=== PATIENT | male | born 1965 | race Caucasian/White ===

== ENCOUNTER 2019-03-22 13:51 | Observation (INO) | payer OTHER ==
[2019-03-22 14:32] LABS: Absolute Lymphocytes (CBC) 1.6 K/uL (0.7-4.9); Basophils % 0.8 % (0-1.3); Hematocrit 45.6 % (39.6-49.0); RBC Red Blood Cell Count 5.53 M/uL (4.33-5.43)
[2019-03-22 14:33] LABS: Protime INR 1.08
[2019-03-22 14:52] LABS: ALT/SGPT 36 U/L (12-78); AST/SGOT 16 U/L (15-37); Albumin 3.7 g/dL (3.4-5.0); Alkaline Phosphatase 75 U/L (45-117); BUN Blood Urea Nitrogen 11 mg/dL (7-18); Bicarbonate 27 mmol/L (21-32); Bilirubin Direct 0.1 mg/dL (0-0.2); Bilirubin Total 0.6 mg/dL (0.2-1.0); Glucose Level 175 mg/dL (74-106); Lipase 110 U/L (73-393); Magnesium 2.1 mg/dL (1.8-2.4); NT PRO-BNP 21 pg/mL (<125); Protein, Total 7.4 g/dL (6.4-8.2); Sodium Level 137 mmol/L (136-145); Troponin (Emerg Dept Use Only) < 0.02 ng/mL (0.0-0.045)
[2019-03-22] MEDS ORDERED: MAGNE/ALUM HYDROXD 30 ML UCUP ONE (15:03)
[2019-03-22] MEDS ORDERED: FAMOTIDINE 20 MG/2 ML VIAL IV ONE (15:03)
[2019-03-22] MEDS ORDERED: LIDOCAINE VISCOUS 2% SOLN 15 ML UDC ONE (15:03)
--- NOTE | 2019-03-22 15:04 | RAD REPORT ---
EXAM DESCRIPTION: RAD - Chest Single View - 03/22/2019 2:56 pm CLINICAL HISTORY: Chest pain COMPARISON: None. TECHNIQUE: AP portable chest image was obtained 1442 hours . FINDINGS: Lung volumes are low. No peripheral mass or consolidation. No failure or volume overload s uspected. Heart and vasculature are normal. No measurable pleural effusion and no pneumothorax. No ac [place] bony abnormality seen. No acute aortic findings suspected. IMPRESSION: No acute cardiopulmonary process.
--- NOTE | 2019-03-22 15:05 | EDPHYS ---
Physician Documentation [facility] Name: En Bryant Age: 53 yrs Sex: Male : 1965 Arrival Date: 03/22/2019 Time: 13:52 Bed 7 Private MD: Unknown, Unknown ED Physician José Parker HPI: 03/22 15:01 This 53 yrs old Male presents to ER via Ambulatory with complaints of Chest parrish Pain. 15:01 The patient or guardian reports chest pain that is located primarily in the substernal parrish area. Onset: 3 day(s) ago. The pain does not radiate. Associated signs and symptoms: The patient has no apparent associated signs or symptoms. The chest pain is described as a pressure. Severity of pain: At its worst the pain was mild moderate in the emergency department the pain is unchanged. The patient has experienced similar episodes in the past, several times. Historical: - Allergies: 14:04 No Known Allergies; rv - Home Meds: 14:08 metformin 500 mg Oral tab 1 tab 2 times per day [Active]; atorvastatin 80 mg oral tab 1 rv tab once daily [Active]; isosorbide mononitrate 60 mg Oral Tb24 1 tab once daily [Active]; clopidogrel 75 mg oral tab 1 tab once daily [Active]; Xarelto 20 mg oral tab 1 tab once daily [Active]; - PMHx: 14:04 Hypertension; Diabetes - NIDDM; Hernia; Diverticulitis; rv - PSHx: 14:04 Angioplasty; rv - Immunization history:: Adult Immunizations. - Social history:: Smoking status: . - Ebola Screening: : Patient denies travel to an Ebola-affected area in the 21 days before illness onset. - Family history:: not pertinent. ROS: 15:01 Constitutional: Negative for fever, chills, and weight loss, Eyes: Negative for injury, parrish pain, redness, and discharge, ENT: Negative for injury, pain, and discharge, Neck: Negative for injury, pain, and swelling, Respiratory: Negative for shortness of breath, cough, wheezing, and pleuritic chest pain, Abdomen/GI: Negative for abdominal pain, nausea, vomiting, diarrhea, and constipation, Back: Negative for injury and pain, : Negative for injury, bleeding, discharge, and swelling, MS/Extremity: Negative for injury and deformity, Skin: Negative for injury, rash, and discoloration, Neuro: Negative for headache, weakness, numbness, tingling, and seizure, Psych: Negative for depression, anxiety, suicide ideation, homicidal ideation, and hallucinations, Allergy/Immunology: Negative for hives, rash, and allergies, Endocrine: Negative for neck swelling, polydipsia, polyuria, polyphagia, and marked weight changes, Hematologic/Lymphatic: Negative for swollen nodes, abnormal bleeding, and unusual bruising. 15:01 Cardiovascular: Positive for chest pain, of the chest and abdomen. Exam: 15:01 Constitutional: This is a well developed, well nourished patient who is awake, alert, parrish and in no acute distress. Head/Face: Normocephalic, atraumatic. Eyes: Pupils equal round and reactive to light, extra-ocular motions intact. Lids and lashes normal. Conjunctiva and sclera are non-icteric and not injected. Cornea within normal limits. Periorbital areas with no swelling, redness, or edema. ENT: Nares patent. No nasal discharge, no septal abnormalities noted. Tympanic membranes are normal and external auditory canals are clear. Oropharynx with no redness, swelling, or masses, exudates, or evidence of obstruction, uvula midline. Mucous membranes moist. Neck: Trachea midline, no thyromegaly or masses palpated, and no cervical lymphadenopathy. Supple, full range of motion without nuchal rigidity, or vertebral point tenderness. No Meningismus. Chest/axilla: Normal chest wall appearance and motion. Nontender with no deformity. No lesions are appreciated. Cardiovascular: Regular rate and rhythm with a normal S1 and S2. No gallops, murmurs, or rubs. Normal PMI, no JVD. No pulse deficits. Respiratory: Lungs have equal breath sounds bilaterally, clear to auscultation and percussion. No rales, rhonchi or wheezes noted. No increased work of breathing, no retractions or nasal flaring. Abdomen/GI: Soft, non-tender, with normal bowel sounds. No distension or tympany. No guarding or rebound. No evidence of tenderness throughout. Back: No spinal tenderness. No costovertebral tenderness. Full range of motion. Male : Normal genitalia with no discharge or lesions. Skin: Warm, dry with normal turgor. Normal color with no rashes, no lesions, and no evidence of cellulitis. MS/ Extremity: Pulses equal, no cyanosis. Neurovascular intact. Full, normal range of motion. Neuro: Awake and alert, GCS 15, oriented to person, place, time, and situation. Cranial nerves II-XII grossly intact. Motor strength 5/5 in all extremities. Sensory grossly intact. Cerebellar exam normal. Normal gait. Psych: Awake, alert, with orientation to person, place and time. Behavior, mood, and affect are within normal limits. Vital Signs: 14:06 BP 114 / 65; Pulse 88; Resp 17; Temp 98.4; Pulse Ox 100% ; Weight 95.25 kg; Height 6 rv ft. (182.88 cm); 15:15 BP 144 / 101 (art line/); Pulse 76; Resp 17; Pulse Ox 100% on R/A; tw2 16:31 BP 154 / 102; Pulse 77; Resp 17; Pulse Ox 100% on R/A; tw2 17:25 BP 139 / 93; Pulse 80; Resp 17; Pulse Ox 98% on R/A; tw2 18:13 BP 139 / 96; Pulse 80; Resp 17; Pulse Ox 98% on R/A; tw2 14:06 Body Mass Index 28.48 (95.25 kg, 182.88 cm) rv MDM: 14:13 Patient medically screened. [facility] 15:03 Data reviewed: vital signs, nurses notes, lab test result(s), EKG, radiologic studies, [facility] CT scan, plain films. 03/22 14:15 Order name: Basic Metabolic Panel; Complete Time: 14:[address] [facility] 03/22 14:15 Order name: CBC with Diff; Complete Time: 14:[address] [facility] 03/22 14:15 Order name: LFT's; Complete Time: 14:[address] [facility] 03/22 14:15 Order name: Magnesium; Complete Time: 14:[address] [facility] 03/22 14:15 Order name: NT PRO-BNP; Complete Time: 14:[address] [facility] 03/22 14:15 Order name: PT-INR; Complete Time: 14:[address] [facility] 03/22 14:15 Order name: Troponin (emerg Dept Use Only); Complete Time: 14:[address] [facility] 03/22 14:15 Order name: XRAY Chest (1 view); Complete Time: 15:[address] [facility] 03/22 14:15 Order name: Lipase; Complete Time: 14:[address] [facility] 03/22 15:00 Order name: CT Chest For PE Angio; Complete Time: 16:[address] [facility] 03/22 16:39 Order name: Urine Dipstick--Ancillary (enter results) 03/22 16:43 Order name: Urine Dipstick-Ancillary [facility] 03/22 14:15 Order name: EKG; Complete Time: 14:[address] [facility] 03/22 14:15 Order name: Cardiac monitoring; Complete Time: 14:[address] [facility] 03/22 14:15 Order name: EKG - Nurse/Tech; Complete Time: 14:[address] [facility] 03/22 14:15 Order name: IV Saline Lock; Complete Time: 14:[address] [facility] 03/22 14:15 Order name: Labs collected and sent; Complete Time: 14:[address] [facility] 03/22 14:15 Order name: O2 Per Protocol; Complete Time: 14:[address] [facility] 03/22 14:15 Order name: O2 Sat Monitoring; Complete Time: 14:[address] [facility] 03/22 14:15 Order name: Urine Dipstick-Ancillary (obtain specimen); Complete Time: 16:[address] [facility] Administered Medications: 15:07 Drug: Pepcid 20 mg Route: IVP; Site: right antecubital; tw2 16:32 Follow up: Response: No adverse reaction tw2 15:07 Drug: GI Cocktail without - (Maalox Suspension 30 ml, Lidocaine Liquid 2 % 15 tw2 ml) Route: PO; 16:33 Follow up: Response: No adverse reaction tw2 Disposition: 03/22/19 15:04 Hospitalization ordered by Julio Louis for Observation. Preliminary diagnosis are Other chest pain, Type 2 diabetes mellitus, Obesity, unspecified. - Bed requested for Telemetry/MedSurg (observation). - Status is Observation. tw2 - Condition is Stable. - Problem is new. - Symptoms have improved. UTI on Admission? No Signatures: Dispatcher [employer] Kendy Marie RN RN José Soto MD MD cha Wise, Tara RN RN tw2 Boston Hearn RN RN rv Corrections: (The following items were deleted from the chart) 18:08 15:04 Hospitalization Ordered by Julio Louis DO for Observation. Preliminary spencer diagnosis is Other chest pain; Type 2 diabetes mellitus; Obesity, unspecified. Bed requested for Telemetry/MedSurg (observation). Status is Observation. Condition is Stable. Problem is new. Symptoms have improved. UTI on Admission? No. parrish 18:23 18:08 03/22/2019 15:04 Hospitalization Ordered by Julio Louis DO for Observation. tw2 Preliminary diagnosis is Other chest pain; Type 2 diabetes mellitus; Obesity, unspecified. Bed requested for Telemetry/MedSurg (observation). Status is Observation. Condition is Stable. Problem is new. Symptoms have improved. UTI on Admission? No. dw
--- NOTE | 2019-03-22 15:05 | ER ---
Nurse's Notes [facility] Name: En Bryant Age: 53 yrs Sex: Male : 1965 Arrival Date: 03/22/2019 Time: 13:52 Bed 7 Private MD: Unknown, Unknown Diagnosis: Other chest pain;Type 2 diabetes mellitus;Obesity, unspecified Presentation: 03/22 14:02 Presenting complaint: Patient states: i am having chest pain for three days now. it is rv like pressure. an hour ago it was worse, the pain is like 10/10. Transition of care: patient was not received from another setting of care. Onset of symptoms was March 22, 2019 at 13:00. Risk Assessment: Do you want to hurt yourself or someone else? Patient reports no desire to harm self or others. Initial Sepsis Screen: Does the patient meet any 2 criteria? No. Patient's initial sepsis screen is negative. Does the patient have a suspected source of infection? No. Patient's initial sepsis screen is negative. Care prior to arrival: None. 14:02 Method Of Arrival: Ambulatory rv 14:02 Acuity: MARIBEL 3 rv Historical: - Allergies: 14:04 No Known Allergies; rv - Home Meds: 14:08 metformin 500 mg Oral tab 1 tab 2 times per day [Active]; atorvastatin 80 mg oral tab 1 rv tab once daily [Active]; isosorbide mononitrate 60 mg Oral Tb24 1 tab once daily [Active]; clopidogrel 75 mg oral tab 1 tab once daily [Active]; Xarelto 20 mg oral tab 1 tab once daily [Active]; - PMHx: 14:04 Hypertension; Diabetes - NIDDM; Hernia; Diverticulitis; rv - PSHx: 14:04 Angioplasty; rv - Immunization history:: Adult Immunizations. - Social history:: Smoking status: . - Ebola Screening: : Patient denies travel to an Ebola-affected area in the 21 days before illness onset. - Family history:: not pertinent. Screenin:01 Abuse screen: Denies threats or abuse. Nutritional screening: No deficits noted. tw2 Tuberculosis screening: No symptoms or risk factors identified. Fall Risk None identified. Assessment: 14:00 General: Appears in no apparent distress. Behavior is calm, cooperative, appropriate tw2 for age. Pain: Pain does not radiate. Pain: Complains of pain in chest Pain began 2 hours ago. Neuro: Level of Consciousness is awake, alert, obeys commands, Oriented to person, place, time, situation. Cardiovascular: Heart tones S1 S2 Patient's skin is warm and dry. Respiratory: Airway is patent Respiratory effort is even, unlabored, Respiratory pattern is regular, symmetrical, Breath sounds are clear bilaterally. GI: Abdomen is round non-distended, obese, Bowel sounds present X 4 quads. : No signs and/or symptoms were reported regarding the genitourinary system. EENT: No signs and/or symptoms were reported regarding the EENT system. Derm: No signs and/or symptoms reported regarding the dermatologic system. Musculoskeletal: Range of motion: intact in all extremities. 15:15 Reassessment: Patient appears in no apparent distress at this time. No changes from tw2 previously documented assessment. Patient and/or family updated on plan of care and expected duration. Pain level reassessed. Patient is alert, oriented x 3, equal unlabored respirations, skin warm/dry/pink. 16:32 Reassessment: Patient appears in no apparent distress at this time. No changes from tw2 previously documented assessment. Patient and/or family updated on plan of care and expected duration. Pain level reassessed. Patient is alert, oriented x 3, equal unlabored respirations, skin warm/dry/pink. 17:25 Reassessment: Patient appears in no apparent distress at this time. No changes from tw2 previously documented assessment. Patient and/or family updated on plan of care and expected duration. Pain level reassessed. Patient is alert, oriented x 3, equal unlabored respirations, skin warm/dry/pink. 18:13 Reassessment: Patient appears in no apparent distress at this time. No changes from tw2 previously documented assessment. Patient and/or family updated on plan of care and expected duration. Pain level reassessed. Patient is alert, oriented x 3, equal unlabored respirations, skin warm/dry/pink. Vital Signs: 14:06 BP 114 / 65; Pulse 88; Resp 17; Temp 98.4; Pulse Ox 100% ; Weight 95.25 kg; Height 6 rv ft. (182.88 cm); 15:15 BP 144 / 101 (art line/); Pulse 76; Resp 17; Pulse Ox 100% on R/A; tw2 16:31 BP 154 / 102; Pulse 77; Resp 17; Pulse Ox 100% on R/A; tw2 17:25 BP 139 / 93; Pulse 80; Resp 17; Pulse Ox 98% on R/A; tw2 18:13 BP 139 / 96; Pulse 80; Resp 17; Pulse Ox 98% on R/A; tw2 14:06 Body Mass Index 28.48 (95.25 kg, 182.88 cm) rv ED Course: 13:52 Patient arrived in ED. ag5 13:54 Unknown, Unknown is Private Physician. ag5 14:00 Shereen Gonzalez, KEMI is Primary Nurse. tw2 14:01 Bed in low position. Call light in reach. manugrapher on. Pulse ox on. NIBP on. tw2 14:01 Arm band placed on. EKG completed in triage. Results shown to MD. tw2 14:01 Patient maintains SpO2 saturation greater than 95% on room air. tw2 14:03 Triage completed. rv 14:06 EKG done, by pollution control technician. reviewed by José Parker MD. at1 14:10 Inserted saline lock: 20 gauge in right antecubital area, using aseptic technique. tw2 Blood collected. 14:13 José Parker MD is Attending Physician. parrish 14:56 XRAY Chest (1 view) In Process Unspecified. EDMS 15:03 Julio Louis DO is Hospitalizing Provider. parrish 15:32 CT Chest For PE Angio In Process Unspecified. EDMS 16:30 Inserted saline lock: 20 gauge in left antecubital area, using aseptic technique. tw2 ,using aseptic technique. per CT. 18:14 No provider procedures requiring assistance completed. tw2 18:14 Patient admitted, IV remains in place. tw2 Administered Medications: 15:07 Drug: Pepcid 20 mg Route: IVP; Site: right antecubital; tw2 16:32 Follow up: Response: No adverse reaction tw2 15:07 Drug: GI Cocktail without - (Maalox Suspension 30 ml, Lidocaine Liquid 2 % 15 tw2 ml) Route: PO; 16:33 Follow up: Response: No adverse reaction tw2 Outcome: 15:04 Decision to Hospitalize by Provider. parrish 18:14 Condition: stable tw2 18:14 Instructed on the need for admit. 18:17 Admitted to Med/surg accompanied by tech, via wheelchair, room 426, with chart, Report tw2 called to KEMI Mancilla 18:23 Patient left the ED. tw2 Signatures: Dispatcher [employer] José Clay MD MD cha Gonzales, Amanda, vehicle delivery worker EKG Tat1 Shereen Gonzalez RN RN tw2 Boston Hearn RN RN Chela Solis 5
--- NOTE | 2019-03-22 15:39 | RAD REPORT ---
EXAM DESCRIPTION: CT - Chest For Pe Angio - 03/22/2019 3:31 pm CLINICAL HISTORY: Chest pain. CHEST PAIN COMPARISON: No comparisons TECHNIQUE: CT angiogram of the pulmonary arteries was performed with MIP. All CT scans are performed using dose optimization technique as appropriate and may include automated exposure control or mA/KV adjustment according to patient size. FINDINGS: No evidence of pulmonary thromboembolism. No acute aortic finding demonstrated. The lungs are clear. No significant pericardial or pleural fluid. No concerning bony finding. IMPRESSION: No evidence of pulmonary thromboembolism. No acute lung findings.
--- NOTE | 2019-03-22 15:50 | EKG ---
Test Date: 2019-03-22 Test Time: 14:00:31 Pneumatic Tube Repairer: JOHN MEASUREMENT RESULTS: Intervals: Rate: 83 VA: 182 QRSD: 98 QT: 360 QTc: 423 Moriarty: P: 21 VA: 182 QRS: -26 T: 15 INTERPRETIVE STATEMENTS: Normal sinus rhythm Normal ECG No previous ECG available for comparison Electronically Signed On 03-22-19 15:49:44 CDT by Tommie Laird
--- NOTE | 2019-03-22 15:59 | P.HP ---
Certification for Inpatient Patient admitted to: Observation With expected LOS: <2 Midnights Patient will require the following post-hospital care: None Practitioner: I am a practitioner with admitting privileges, knowledge of patient current condition, hospital course, and medical plan of care. Services: Services provided to patient in accordance with Admission requirements found in Title 42 Section 412.3 of the Code of Federal Regulations Patient History Date of Service: 03/22/19 Primary Care Provider: Maria Guadalupe; Cardiology-Dr. Nation([place]) Reason for admission: Chest pain History of Present Illness: 53-year-old male presented to the emergency room with chest pain. Patient with history of diabetes mellitus type 2 non insulin-dependent, CAD with cardiac stent, history of multiple PE on chronic anti coagulation therapy, GERD/hiatal hernia. Patient presented with chest pain to the substernal region. It has been occurring over the past several days with rest. It is associated with shortness of breath. Some headaches noted. He rated the pain about a 8/10. He came to the ER for further evaluation. Patient reports history of CAD with prior stents. He had repeat heart catheterization in 2017 for chest pain which was unremarkable. He gets most of his care in [place] and [place]. In the ER patient was evaluated. No significant EKG changes noted. Troponin unremarkable. CBC and BMP stable. Chest x-ray unremarkable, chest CT showed no pulmonary embolism. Blood pressure stable at this time. Patient was admitted for further evaluation. When I saw the patient in ER, he was without any chest pain. Patient stable at this time. Home medications list reviewed: Yes - Past Medical/Surgical History Diabetic: Yes -: Diabetes mellitus type 2, non insulin dependent -: CAD with prior stent -: Hyperlipidemia -: GERD with hiatal hernia -: Hx multiple pulmonary emboli, chronic anti coag. -: Cardiac Stent 2014 Psychosocial/ Personal History: Patient is . He currently works as a pipe line employee. Patient travels. - Family History Father -: Heart disease - Social History Smoking Status: Unknown if ever smoked Alcohol use: No CD- Drugs: No Caffeine use: Yes Place of Residence: Home Review of Systems General: As per HPI Eyes: Unremarkable ENT: Unremarkable Respiratory: Shortness of Breath, As per HPI Cardiovascular: Chest Pain, As per HPI Gastrointestinal: Unremarkable Genitourinary: Unremarkable Musculoskeletal: Unremarkable Integumentary: Unremarkable Neurological: Unremarkable Lymphatics: Unremarkable Physical Examination - Physical Exam General: Alert, In no apparent distress, Oriented x3, Cooperative HEENT: Atraumatic, Normocephalic, PERRLA, Mucous membr. moist/pink Neck: Supple, No Thyromegaly Respiratory: Clear to auscultation bilaterally, Normal air movement Cardiovascular: Normal pulses, Regular rate/rhythm Gastrointestinal: Normal bowel sounds, Soft and benign, Non-distended, No tenderness, No masses, No rebound, No guarding Musculoskeletal: No erythema, No tenderness, No warmth Integumentary: No tenderness/swelling, No erythema, No warmth, No cyanosis Neurological: Normal speech, Normal strength at 5/5 x4 extr, Normal tone, Normal affect Lymphatics: No axilla or inguinal lymphadenopathy - Studies Laboratory Data (last 24 hrs) 03/22/19 14:21: PT 12.7 H, INR 1.08 03/22/19 14:21: WBC 8.8, Hgb 15.5, Hct 45.6, Plt Count 262 03/22/19 14:21: Sodium 137, Potassium 4.0, BUN 11, Creatinine 1.09, Glucose 175 H, Magnesium 2.1, Total Bilirubin 0.6, AST 16, ALT 36, Alkaline Phosphatase 75, Lipase 110 Assessment and Plan - Plan Impression: Chest pain with history of cardiac stent Diabetes mellitus type 2 non insulin dependent Hyperlipidemia History of pulmonary emboli on chronic anti coagulation therapy GERD with hiatal hernia Plan: Chest pain with history of cardiac stent: Patient will be admitted for further evaluation. Will continue monitor cardiac enzymes and telemetry. Order echocardiogram. Will continue with Plavix, Lipitor. Cardiology consulted to further evaluate. Will keep the patient NPO after midnight as the patient may require further cardiac evaluation. Anticipate discharge within the next 24-48 hr pending cardiac evaluation. Diabetes mellitus type 2 non insulin dependent: Hold metformin at this time. Continue Accu-Cheks and sliding scale. Hyperlipidemia: Check fasting lipid panel. Continue Lipitor 80 mg daily. History of pulmonary emboli on chronic anti coagulation therapy: Continue Xarelto 20 mg daily GERD with hiatal hernia: Will start Protonix 40 mg daily. Discharge Plan: Home Plan to discharge in: 24 Hours - Advance Directives Does patient have a Living Will: No Does patient have a Durable POA for Healthcare: No - Code Status/Comfort Care Code Status Assessed: Yes (Patient is full code) Time Spent Managing Pts Care (In Minutes): 55
[2019-03-22 16:43] LABS: Urine Blood NEGATIVE (NEG); Urine Glucose NEGATIVE (NEG); Urine Protein NEGATIVE (NEG)
[2019-03-22] MEDS ORDERED: ONDANSETRON 4 MG/2 ML VIAL IV PRN (18:38)
[2019-03-22] MEDS ORDERED: RIVAROXABAN 20 MG TABLET PO SCH (18:38)
[2019-03-22] MEDS ORDERED: ACETAMINOPHEN 500 MG TAB PO PRN (18:38)
[2019-03-22] MEDS ORDERED: HYDRALAZINE HCL 20 MG/ML VIAL IV PRN (18:38)
[2019-03-22] MEDS: INSULIN -REGULAR HUMAN 50 UNIT/0.5 ML ML SQ SCH ×2 (18:38→21:42)
[2019-03-22] MEDS ORDERED: ATORVASTATIN 80 MG TAB PO SCH (21:00)
[2019-03-22 21:40] LABS: CKMB Creatine Kinase MB < 1.0 ng/mL (0.3-3.6); Creatine Phosphokinase 54 U/L (39-308); Troponin I < 0.02 ng/mL (0.0-0.045)
[2019-03-22 23:38] VITALS: BMI 36.6
[2019-03-23 05:07] LABS: Absolute Lymphocytes (CBC) 2.1 K/uL (0.7-4.9); Basophils % 0.9 % (0-1.3); Hematocrit 44.1 % (39.6-49.0); Lymphocytes % 25.3 % (15.3-44.8); MPV 8.9 fL (7.6-11.3); RBC Red Blood Cell Count 5.33 M/uL (4.33-5.43)
[2019-03-23 05:28] LABS: BUN Blood Urea Nitrogen 13 mg/dL (7-18); Bicarbonate 28 mmol/L (21-32); CKMB Creatine Kinase MB < 1.0 ng/mL (0.3-3.6); Creatine Phosphokinase 44 U/L (39-308); Glucose Level 188 mg/dL (74-106); HDL Cholesterol 24 mg/dL (40-60); LDL Cholesterol, Calculated 178 (<130); Magnesium 2.1 mg/dL (1.8-2.4); Potassium 3.8 mmol/L (3.5-5.1); Sodium Level 138 mmol/L (136-145); Troponin I < 0.02 ng/mL (0.0-0.045)
[2019-03-23] MEDS: INSULIN -REGULAR HUMAN 50 UNIT/0.5 ML ML SQ SCH ×2 (07:30→11:53)
[2019-03-23] MEDS ORDERED: PANTOPRAZOLE 40MG TABLET PO SCH (07:30)
[2019-03-23] MEDS ORDERED: INFLUENZA VACCINE (for 3y+) 0.5 ML DOSE IMVAC ONE (08:00)
[2019-03-23] MEDS ORDERED: PNEUMOCOCCAL VACCINE 0.5 ML IMVAC ONE (08:00)
[2019-03-23 08:01] VITALS: O2SAT 95
[2019-03-23] MEDS ORDERED: CLOPIDOGREL 75 MG TABLET PO SCH (09:00)
[2019-03-23] MEDS ORDERED: ISOSORBIDE MONO SR 60 MG TAB PO SCH (09:00)
[2019-03-23] MEDS ORDERED: FOLIC ACID 1 MG TABLET PO SCH (09:00)
[2019-03-23] MEDS ORDERED: POTASSIUM CL SA 10 MEQ TAB PO ONE (09:00)
[2019-03-23] MEDS ORDERED: DOCOSAHEXANOIC AC/EPA 1000 MG PO SCH (09:00)
[2019-03-23 09:18] VITALS: BP 149/94; TEMP 97.6
--- NOTE | 2019-03-23 10:55 | P.DS ---
Admission Date: 03/22/19 Discharge Date: 03/23/19 Primary Care Provider: Maria Guadalupe; Cardiology-Dr. Nation([place]) Disposition: ROUTINE DISCHARGE Discharge Condition: GOOD Reason for Admission: Chest pain Consultations: Cardiology-Dr. Cole Procedures: CT chest: FINDINGS: No evidence of pulmonary thromboembolism. No acute aortic finding demonstrated. The lungs are clear. No significant pericardial or pleural fluid. No concerning bony finding. IMPRESSION: No evidence of pulmonary thromboembolism. No acute lung findings. Medical Problem list: Chest pain with history of cardiac stent Hypertension Diabetes mellitus type 2, non-insulin dependent Hyperlipidemia GERD with hiatal hernia History of pulmonary emboli on chronic anti coagulation therapy Obesity, BMI 36 Brief History of Present Illness: 53-year-old male presented to the emergency room with chest pain. Patient with history of diabetes mellitus type 2 non insulin-dependent, CAD with cardiac stent, history of multiple PE on chronic anti coagulation therapy, GERD/hiatal hernia. Patient presented with chest pain to the substernal region. It has been occurring over the past several days with rest. It is associated with shortness of breath. Some headaches noted. He rated the pain about a 8/10. He came to the ER for further evaluation. Patient reports history of CAD with prior stents. He had repeat heart catheterization in 2017 for chest pain which was unremarkable. He gets most of his care in [place] and [place]. In the ER patient was evaluated. No significant EKG changes noted. Troponin unremarkable. CBC and BMP stable. Chest x-ray unremarkable, chest CT showed no pulmonary embolism. Blood pressure stable at this time. Patient was admitted for further evaluation. When I saw the patient in ER, he was without any chest pain. Patient stable at this time. Hospital Course: Patient presented with chest pain. Patient with history of cardiac stent. During the course of his stay patient did well. Chest pain resolved. Cardiac enzymes unremarkable. Patient was seen and evaluated by Cardiology. No cardiac inpatient evaluation required. Patient had elevated blood pressure and not on prior medication. Toprol XL was added. At discharge, cardiology recommended to continue Toprol-XL 25 mg daily. At discharge patient will need to follow up with cardiology or his test driller's in [place] within 1-2 weeks to follow up this hospitalization. Patient will require outpatient cardiac workup to further address. At discharge he will continue with Lipitor 80 mg daily, Plavix 75 mg daily and isosorbide mononitrate ER 60 mg daily. Patient has GERD with hiatal hernia. Chest pain may be related to this. At discharge patient will continue with Pepcid 20 mg 1 pill twice daily. Patient may benefit with GI evaluation as an outpatient after cardiac workup. Patient with diabetes mellitus type 2. Blood sugars remained stable. At discharge he will continue with Glucophage ER 500 mg 1 pill twice daily. Recommend to maintain blood sugars less than 140 fasting and less than 200 after meals. Further adjustment can be done by his PCP. Patient with history of pulmonary emboli. CT chest unremarkable. Patient on chronic anti coagulation therapy. At discharge he will continue with Xarelto 20 mg daily. Patient with hyperlipidemia. Lipid panel was abnormal. LDL 178, total cholesterol 237, total triglycerides 174 and HDL 24. Patient will continue with Lipitor 80 mg daily. Folic acid and fish oil 2000 mg twice daily has been added. Patient to follow up with his test driller to further address. Patient may be a candidate for subcutaneous injectable medication for hyperlipidemia. This can be further addressed by his test driller. Patient with obesity with BMI 36. Continue lifestyle modification education. Vital Signs/Physical Exam: Temp Pulse Resp BP Pulse Ox 97.6 F 73 20 149/94 H 95 03/23/19 08:00 03/23/19 08:00 03/23/19 08:00 03/23/19 08:00 03/23/19 08:00 General: Alert, In no apparent distress, Oriented x3, Cooperative HEENT: Atraumatic, Mucous membr. moist/pink Neck: Supple, No Thyromegaly Respiratory: Clear to auscultation bilaterally, Normal air movement Cardiovascular: Normal pulses, Regular rate/rhythm Gastrointestinal: Normal bowel sounds, Soft and benign, Non-distended, No tenderness, No masses, No rebound, No guarding Musculoskeletal: No erythema, No tenderness, No warmth Integumentary: No tenderness/swelling, No erythema, No warmth, No cyanosis Neurological: Normal speech, Normal strength at 5/5 x4 extr, Normal tone, Normal affect Laboratory Data at Discharge: WBC 8.3 K/uL (4.3-10.9) 03/23/19 04:50 Hgb 15.1 g/dL (13.6-17.9) 03/23/19 04:50 Hct 44.1 % (39.6-49.0) 03/23/19 04:50 Plt Count 231 K/uL (152-406) 03/23/19 04:50 PT 12.7 SECONDS (9.5-12.5) H 03/22/19 14:21 INR 1.08 03/22/19 14:21 Sodium 138 mmol/L (136-145) 03/23/19 04:50 Potassium 3.8 mmol/L (3.5-5.1) 03/23/19 04:50 BUN 13 mg/dL (7-18) 03/23/19 04:50 Creatinine 1.05 mg/dL (0.55-1.3) 03/23/19 04:50 Glucose 188 mg/dL (74-106) H 03/23/19 04:50 Magnesium 2.1 mg/dL (1.8-2.4) 03/23/19 04:50 Total Bilirubin 0.6 mg/dL (0.2-1.0) 03/22/19 14:21 AST 16 U/L (15-37) 03/22/19 14:21 ALT 36 U/L (12-78) 03/22/19 14:21 Alkaline Phosphatase 75 U/L (45-117) 03/22/19 14:21 Troponin I < 0.02 ng/mL (0.0-0.045) 03/23/19 04:50 Triglycerides 174 mg/dL (<150) H 03/23/19 04:50 Cholesterol 237 mg/dL (<200) H 03/23/19 04:50 HDL Cholesterol 24 mg/dL (40-60) L 03/23/19 04:50 Cholesterol/HDL Ratio 9.88 03/23/19 04:50 Lipase 110 U/L (73-393) 03/22/19 14:21 Home Medications: Atorvastatin Calcium [Lipitor] 1 tab PO DAILY 03/22/19 Clopidogrel Bisulfate [Plavix*] 1 tab PO DAILY 03/22/19 Isosorbide Mononitrate [Isosorbide Mononitrate ER] 1 tab PO DAILY 03/22/19 Metformin ER [Glucophage ER*] 1 tab PO BID 03/22/19 Rivaroxaban [Xarelto*] 20 mg PO DAILY 03/22/19 Docosahexanoic AC/Epa [Fish Oil 1,000 MG*] 2,000 mg PO BID #120 cap 03/23/19 Famotidine [Pepcid] 20 mg PO BID #60 tab 03/23/19 Metoprolol Succinate [Toprol Xl*] 25 mg PO [id number] #30 tab 03/23/19 New Medications: Docosahexanoic AC/Epa [Fish Oil 1,000 MG*] 2,000 mg PO BID #120 cap Famotidine [Pepcid] 20 mg PO BID #60 tab Metoprolol Succinate [Toprol Xl*] 25 mg PO [id number] #30 tab Patient Discharge Instructions: 1. Recommend to follow up with PCP in 1 week to follow up this hospitalization. 2. Patient presented with chest pain. Patient with history of cardiac stent. Cardiac enzymes unremarkable. Patient seen and evaluated by Cardiology. No cardiac inpatient evaluation required. Cardiology recommended to the added Toprol-XL 25 mg daily. At discharge patient should follow up with his test driller or follow up with cardiology within 1-2 weeks to follow up this hospitalization. Patient will require outpatient cardiac workup to further address. Patient may continue his other medications including Lipitor 80 mg daily, Plavix 75 mg daily, and isosorbide mononitrate ER 60 mg daily. 3. Patient has GERD with hiatal hernia. At discharge patient will continue with Pepcid 20 mg 1 pill twice daily. Patient may benefit with GI evaluation as an outpatient. 4. Patient with diabetes mellitus type 2. At discharge he will continue with Glucophage ER 500 mg 1 pill twice daily. Recommend to maintain blood sugars less than 140 fasting and less than 200 after meals. Further adjustment can be done by his PCP. 5. Patient with history of pulmonary emboli. Patient on chronic anti coagulation therapy. At discharge he will continue with Xarelto 20 mg daily. 6. Patient with hyperlipidemia. LDL elevated. Patient will continue with Lipitor 80 mg daily. Folic acid and fish oil 2000 mg twice daily has been added. Patient to follow up with his test driller to further address. Patient may be a candidate for subcutaneous injectable medication for hyperlipidemia. Diet: AHA Activity: Ad laureano Time spent managing pt's care (in minutes): 55
--- NOTE | 2019-03-24 01:27 | CON ---
Date of Consultation: 03/23/[address] Louis's service on 03/22/2019. I saw the patient on 03/23/2019. Reason For Consultation: Chest pain. History Of Present Illness: Mr. Bryant is a 53-year-old male has had a history of multiple pulmonar y emboli in the past for which he takes Xarelto, has had a history of stent in 2014 in [place]. Has a history of diabetes, hypertension, gastroesophageal reflux disease, and hiatal hernia. He came in with mid-epigastric chest pain that radiates up to the throat without any nausea, vomiting, diaphore sis, PND, orthopnea, pedal edema, palpitation, or syncope. Symptoms are not exertional. By the time I saw him, he has already had a normal chest x-ray, EKG, and labs except for the cholesterol of 237, glucose of 376. His troponin was negative. Past Medical History: As stated above. Allergies: NO MEDICATION. Review of Systems: Negative. Social History: Negative. Family History: Positive for heart disease. Medications At Home: Lipitor, Plavix, Xarelto, Imdur, and metformin. Physical Examination: General: He weighed 270 pounds. No acute distress. Vital Signs: Stable. Afebrile. HEENT: Negative. Neck: Supple without any bruit, lymphadenopathy, JVD, or thyromegaly. Chest: Clear to auscultation and percussion. Cardiac: Revealed a regular rhythm and rate. No murmurs, gallops, or rubs. Abdomen: Benign. Extremities: Revealed no clubbing, cyanosis, or edema. Skin: Dry and intact. Neurological: He was nonfocal. Pulses were present distally bilaterally. Diagnostic Data: As stated earlier. Impression And Plan: 1.Atypical chest pain, most likely gastroesophageal reflux disease or hiatal hernia related. 2.History of coronary artery disease, status post stent in 2014. 3.Hypertension. 4.Diabetes. 5.History of pulmonary embolus, on Xarelto. I think we need to continue his present regimen with Li pitor, Plavix, Xarelto, Imdur, and metformin. I think we need to add Toprol to his regimen because michelle hernández is slightly hypertensive and has been for a while. He should be on beta-amber because of his his tory. He sees Dr. Nation in [place]. Does his livestock dealer and I recommended, he follows up wit h him in the near future. If he has any more chest pain despite his present regimen, I recommended t hat he come to see me in the office at which time, he should have another stress test or maybe even a catheterization. His diabetes is poorly controlled and I will have Dr. Louis address that issue. He may need to have a higher dose of metformin. SHAYLEE/RYLEE Voice ID: [id number] Report ID: [id number]
[2019-03-24] MEDS ORDERED: METOPROLOL XL 25 MG TAB PO SCH (06:00)
== END 2019-03-23 12:04 | disposition home or self-care (01) ==
LOC: ER 13:51 → ERHOLD 15:48 → 4TH 18:17
PROVIDERS: ADMIT Family Medicine; ATTEND Family Medicine
DX: R07.9 Chest pain, unspecified (principal); I10 Essential (primary) hypertension; E11.9 Type 2 diabetes mellitus without complications; E78.5 Hyperlipidemia, unspecified; K21.9 Gastro-esophageal reflux disease without esophagitis; K44.9 Diaphragmatic hernia without obstruction or gangrene; Z86.711 Personal history of pulmonary embolism; Z79.01 Long term (current) use of anticoagulants; E66.9 Obesity, unspecified; Z68.36 Body mass index [BMI] 36.0-36.9, adult; Z23 Encounter for immunization; Z95.5 Presence of coronary angioplasty implant and graft
CPT/HCPCS: 93005; 85025 ×2; 80048 ×2; 36415; 83735 ×2; 82550 ×2; 85610; 80061; 82962 ×4; 80076; 84443; 81003; 84484 ×3; 82553 ×2; 84439; 83690; 83880; 71275; 71045; 90471 ×2; 90670; 96374; 99285; Q9967; Q2035; G0378 ×3

== ENCOUNTER 2019-06-17 19:46 | Inpatient (IN) | payer OTHER ==
[2019-06-17 20:32] LABS: Absolute Lymphocytes (CBC) 1.6 K/uL (0.7-4.9); Basophils % 1.1 % (0-1.3); Hematocrit 44.5 % (39.6-49.0); MPV 9.2 fL (7.6-11.3); RBC Red Blood Cell Count 5.33 M/uL (4.33-5.43)
[2019-06-17 20:34] LABS: Protime INR 1.11
[2019-06-17] MEDS ORDERED: NA CHLORIDE 0.9% 1,000 ML ONE (20:34)
[2019-06-17] MEDS ORDERED: FAMOTIDINE 20 MG/2 ML VIAL IV ONE (20:34)
[2019-06-17] MEDS ORDERED: ONDANSETRON 4 MG/2 ML VIAL ONE ×2 (20:34→22:18)
[2019-06-17] MEDS ORDERED: METOPROLOL TARTRATE 5 MG/5 ML INJ IV ONE (20:34)
[2019-06-17] MEDS ORDERED: MORPHINE 2 MG/ML SYR ONE ×2 (20:34→22:18)
--- NOTE | 2019-06-17 20:36 | ER ---
Nurse's Notes [facility] Name: En Bryant Age: 53 yrs Sex: Male : 1965 Arrival Date: 06/17/2019 Time: 19:47 Bed 17 Private MD: Diagnosis: Other chest pain;Type 2 diabetes mellitus;Essential (primary) hypertension Presentation: 06/17 20:13 Presenting complaint: Patient states: "I have had chest pain and diarrhea for a couple jd3 of days now.". Transition of care: patient was not received from another setting of care. Onset of symptoms was June 17, 2019. Risk Assessment: Do you want to hurt yourself or someone else? Patient reports no desire to harm self or others. Initial Sepsis Screen: Does the patient meet any 2 criteria? No. Patient's initial sepsis screen is negative. Does the patient have a suspected source of infection? No. Patient's initial sepsis screen is negative. Care prior to arrival: None. 20:13 Method Of Arrival: Ambulatory jd3 20:13 Acuity: MARIBEL 3 jd3 Historical: - Allergies: 20:14 No Known Allergies; jd3 - Home Meds: 20:14 atorvastatin 80 mg Oral tab 1 tab once daily [Active]; clopidogrel 75 mg Oral tab 1 tab jd3 once daily [Active]; isosorbide mononitrate 60 mg Oral Tb24 1 tab once daily [Active]; metformin 500 mg Oral tab 1 tab 2 times per day [Active]; Xarelto 20 mg Oral tab 1 tab once daily [Active]; - PMHx: 20:14 Diabetes - NIDDM; Hernia; Diverticulitis; Hypertension; jd3 - PSHx: 20:14 Angioplasty; Heart stents; jd3 - Immunization history:: Adult Immunizations up to date. - Social history:: Smoking status: unknown. - Ebola Screening: : Patient negative for fever greater than or equal to 101.5 degrees Fahrenheit, and additional compatible Ebola Virus Disease symptoms. - Family history:: not pertinent. Screenin:16 Abuse screen: Denies threats or abuse. Denies injuries from another. Nutritional aa1 screening: No deficits noted. Tuberculosis screening: No symptoms or risk factors identified. Fall Risk None identified. Assessment: 20:16 General: Appears in no apparent distress. comfortable, Behavior is calm, cooperative, aa1 appropriate for age. Pain: Complains of pain in chest and epigastric area Pain radiates to left arm Pain currently is 0 out of 10 on a pain scale. Quality of pain is described as pressure, Pain began 2-3 days ago. Is intermittent. Neuro: Level of Consciousness is awake, alert, obeys commands, Oriented to person, place, time, situation, Moves all extremities. Full function Gait is steady, Speech is normal. Cardiovascular: Reports chest pain, Denies diaphoresis, palpitations, shortness of breath, Heart tones S1 S2 present Capillary refill < 3 seconds Clubbing of nail beds is absent JVD is absent Patient's skin is warm and dry. Rhythm is regular Chest pain is described as vague, quality is pressure, is located in anterior chest wall epigastric area radiates to left arm(s) episodes are intermittent. Respiratory: Airway is patent Respiratory effort is even, unlabored, Respiratory pattern is regular, symmetrical. GI: Abdomen is round Abd is soft X 4 quads Abdomen is tender to palpation in right upper quadrant and left upper quadrant Reports upper abdominal pain, diarrhea, epigastric pain. : No signs and/or symptoms were reported regarding the genitourinary system. EENT: No signs and/or symptoms were reported regarding the EENT system. Derm: Skin is intact, is healthy with good turgor, Skin is pink, warm \\T\\ dry. Musculoskeletal: Circulation, motion, and sensation intact. Capillary refill < 3 seconds. 21:13 Reassessment: Patient appears in no apparent distress at this time. Patient and/or aa1 family updated on plan of care and expected duration. Pain level reassessed. Patient is alert, oriented x 3, equal unlabored respirations, skin warm/dry/pink. Awaiting bed assignment. 22:10 Reassessment: Patient appears in no apparent distress at this time. Patient and/or aa1 family updated on plan of care and expected duration. Pain level reassessed. Patient is alert, oriented x 3, equal unlabored respirations, skin warm/dry/pink. Pt awaiting bed assignment. To be placed as ER hold. Requesting more pain \\T\\ nausea medication; MD notified. Vital Signs: 20:14 BP 141 / 101; Pulse 93; Resp 19 S; Temp 98.7(TE); Pulse Ox 97% on R/A; Weight 122.47 kg jd3 (R); Height 6 ft. 0 in. (182.88 cm) (R); Pain 5/10; 21:13 BP 132 / 95; Pulse 72; Resp 18; Pulse Ox 98% on R/A; Pain 0/10; aa1 22:10 BP 132 / 88; Pulse 79; Resp 18; Temp 98.6; Pulse Ox 98% on R/A; Pain 5/10; aa1 20:14 Body Mass Index 36.62 (122.47 kg, 182.88 cm) [facility] ED Course: 19:47 Patient arrived in ED. cl3 20:03 José Parker MD is Attending Physician. parrish 20:10 EKG done, by ED staff, reviewed by José Parker MD. aa1 20:12 Initial lab(s) drawn, by ED staff, sent to lab. Inserted saline lock: 20 gauge in right aa1 antecubital area, using aseptic technique. Blood collected. Patient maintains SpO2 saturation greater than 95% on room air. 20:13 Triage completed. jd3 20:16 Arm band placed on. EKG completed in triage. Results shown to MD. jd3 20:16 Patient has correct armband on for positive identification. Placed in gown. Bed in low aa1 position. Call light in reach. pvc monitor on. Pulse ox on. NIBP on. 20:20 Candace Jensen RN is Primary Nurse. aa1 20:34 Prince Sena is Hospitalizing Provider. parrish 20:36 XRAY Chest (1 view) In Process Unspecified. EDMS 22:29 No provider procedures requiring assistance completed. Patient admitted, IV remains in aa1 place. 22:57 Report given to Jagruti Ro RN. aa1 Administered Medications: 20:30 Drug: NS 0.9% 1000 ml Route: IV; Rate: 125 ml/hr; Site: right antecubital; aa1 21:14 Follow up: IV Status: Infusion continued upon admission aa1 20:30 Drug: Lopressor 5 mg Route: IVP; Site: right antecubital; aa1 21:30 Follow up: Response: No adverse reaction; No change in condition aa1 20:32 Drug: Zofran 4 mg Route: IVP; Site: right antecubital; aa1 21:32 Follow up: Response: No adverse reaction; Nausea is decreased aa1 20:34 Drug: Pepcid 20 mg Route: IVP; Site: right antecubital; aa1 21:34 Follow up: Response: No adverse reaction; No change in condition aa1 20:35 Drug: morphine 2 mg Route: IVP; Site: right antecubital; aa1 21:35 Follow up: Response: No adverse reaction; Pain is decreased aa1 22:27 Drug: morphine 2 mg Route: IVP; Site: right antecubital; aa1 06/18 00:06 Follow up: Response: No adverse reaction; Pain is decreased; RASS: Alert and Calm (0) 06/17 22:27 Drug: Zofran 4 mg Route: IVP; Site: right antecubital; aa 06/18 00:05 Follow up: Response: No adverse reaction 10:30 Drug: GI Cocktail without - (Maalox Suspension 30 ml, Lidocaine Liquid 2 % 15 hb ml) Route: PO; 10:30 Drug: Bentyl 10 mg Route: PO; Outcome: 06/17 20:35 Decision to Hospitalize by Provider. parrish 22:57 Admitted to ER Hold. Please see [facility] for further documentation. aa1 22:57 Condition: stable 22:57 Instructed on the need for admit, Demonstrated understanding of instructions. 06/18 13:38 Patient left the ED. eb Signatures: Dispatcher [employer] EDCandace Sanchez, RN RN aa1 José Parker MD MD cha Baxter, Heather, RN RN Jagruti Ro Paul Negron RN RN jd3 Botello, Elizabeth eb Lewis, Charde cl3
--- NOTE | 2019-06-17 20:36 | EDPHYS ---
Physician Documentation [facility] Name: En Bryant Age: 53 yrs Sex: Male : 1965 Arrival Date: 06/17/2019 Time: 19:47 Bed 17 Private MD: ED Physician José Parker HPI: 06/17 20:17 This 53 yrs old Male presents to ER via Ambulatory with complaints of Chest parrish Pain. 20:17 The patient or guardian reports chest pain that is located primarily in the substernal parrish area, anterior chest wall, bilaterally. Onset: just prior to arrival. The pain radiates to the left arm. Associated signs and symptoms: The patient has no apparent associated signs or symptoms. The chest pain is described as a heaviness, causing indigestion, a pressure. Duration: The patient or guardian reports a single episode, that is still ongoing, but improving. Modifying factors: The symptoms are alleviated by nothing. the symptoms are aggravated by nothing. Severity of pain: At its worst the pain was mild. Historical: - Allergies: 20:14 No Known Allergies; jd3 - Home Meds: 20:14 atorvastatin 80 mg Oral tab 1 tab once daily [Active]; clopidogrel 75 mg Oral tab 1 tab jd3 once daily [Active]; isosorbide mononitrate 60 mg Oral Tb24 1 tab once daily [Active]; metformin 500 mg Oral tab 1 tab 2 times per day [Active]; Xarelto 20 mg Oral tab 1 tab once daily [Active]; - PMHx: 20:14 Diabetes - NIDDM; Hernia; Diverticulitis; Hypertension; jd3 - PSHx: 20:14 Angioplasty; Heart stents; jd3 - Immunization history:: Adult Immunizations up to date. - Social history:: Smoking status: unknown. - Ebola Screening: : Patient negative for fever greater than or equal to 101.5 degrees Fahrenheit, and additional compatible Ebola Virus Disease symptoms. - Family history:: not pertinent. ROS: 20:17 Constitutional: Negative for fever, chills, and weight loss, Eyes: Negative for injury, parrish pain, redness, and discharge, ENT: Negative for injury, pain, and discharge, Neck: Negative for injury, pain, and swelling, Respiratory: Negative for shortness of breath, cough, wheezing, and pleuritic chest pain, Abdomen/GI: Negative for abdominal pain, nausea, vomiting, diarrhea, and constipation, Back: Negative for injury and pain, : Negative for injury, bleeding, discharge, and swelling, MS/Extremity: Negative for injury and deformity, Skin: Negative for injury, rash, and discoloration, Neuro: Negative for headache, weakness, numbness, tingling, and seizure, Psych: Negative for depression, anxiety, suicide ideation, homicidal ideation, and hallucinations, Allergy/Immunology: Negative for hives, rash, and allergies, Endocrine: Negative for neck swelling, polydipsia, polyuria, polyphagia, and marked weight changes. 20:17 Cardiovascular: Positive for chest pain. Exam: 20:17 Constitutional: This is a well developed, well nourished patient who is awake, alert, parrish and in no acute distress. Head/Face: Normocephalic, atraumatic. Eyes: Pupils equal round and reactive to light, extra-ocular motions intact. Lids and lashes normal. Conjunctiva and sclera are non-icteric and not injected. Cornea within normal limits. Periorbital areas with no swelling, redness, or edema. ENT: Nares patent. No nasal discharge, no septal abnormalities noted. Tympanic membranes are normal and external auditory canals are clear. Oropharynx with no redness, swelling, or masses, exudates, or evidence of obstruction, uvula midline. Mucous membranes moist. Neck: Trachea midline, no thyromegaly or masses palpated, and no cervical lymphadenopathy. Supple, full range of motion without nuchal rigidity, or vertebral point tenderness. No Meningismus. Chest/axilla: Normal chest wall appearance and motion. Nontender with no deformity. No lesions are appreciated. Cardiovascular: Regular rate and rhythm with a normal S1 and S2. No gallops, murmurs, or rubs. Normal PMI, no JVD. No pulse deficits. Respiratory: Lungs have equal breath sounds bilaterally, clear to auscultation and percussion. No rales, rhonchi or wheezes noted. No increased work of breathing, no retractions or nasal flaring. Abdomen/GI: Soft, non-tender, with normal bowel sounds. No distension or tympany. No guarding or rebound. No evidence of tenderness throughout. Back: No spinal tenderness. No costovertebral tenderness. Full range of motion. Male : Normal genitalia with no discharge or lesions. Skin: Warm, dry with normal turgor. Normal color with no rashes, no lesions, and no evidence of cellulitis. MS/ Extremity: Pulses equal, no cyanosis. Neurovascular intact. Full, normal range of motion. Neuro: Awake and alert, GCS 15, oriented to person, place, time, and situation. Cranial nerves II-XII grossly intact. Motor strength 5/5 in all extremities. Sensory grossly intact. Cerebellar exam normal. Normal gait. Psych: Awake, alert, with orientation to person, place and time. Behavior, mood, and affect are within normal limits. Vital Signs: 20:14 BP 141 / 101; Pulse 93; Resp 19 S; Temp 98.7(TE); Pulse Ox 97% on R/A; Weight 122.47 kg jd3 (R); Height 6 ft. 0 in. (182.88 cm) (R); Pain 5/10; 21:13 BP 132 / 95; Pulse 72; Resp 18; Pulse Ox 98% on R/A; Pain 0/10; aa1 22:10 BP 132 / 88; Pulse 79; Resp 18; Temp 98.6; Pulse Ox 98% on R/A; Pain 5/10; aa1 20:14 Body Mass Index 36.62 (122.47 kg, 182.88 cm) jd3 MDM: 20:03 Patient medically screened. [facility] 20:20 Data reviewed: vital signs, nurses notes, lab test result(s), EKG, radiologic studies, parrish plain films. 06/17 20:08 Order name: Basic Metabolic Panel; Complete Time: 20:52 [facility] 06/17 20:08 Order name: CBC with Diff; Complete Time: 20:45 [facility] 06/17 20:08 Order name: LFT's; Complete Time: 20:52 parrish 06/17 20:08 Order name: Magnesium; Complete Time: 20:52 parrish 06/17 20:08 Order name: NT PRO-BNP; Complete Time: 20:52 [facility] 06/17 20:08 Order name: PT-INR; Complete Time: 20:45 [facility] 06/17 20:08 Order name: Troponin (emerg Dept Use Only); Complete Time: 20:52 parrish 06/17 20:27 Order name: Lipase; Complete Time: 20:52 EDMS 06/17 23:45 Order name: Urine Dipstick--Ancillary (enter results) ar5 06/18 00:34 Order name: Troponin I EDMS 06/18 00:34 Order name: Lipid Profile EDMS 06/18 00:45 Order name: Urine Dipstick-Ancillary EDMS 06/18 05:57 Order name: Basic Metabolic Panel EDMS 06/17 20:08 Order name: XRAY Chest (1 view); Complete Time: 20:45 [facility] 06/17 20:08 Order name: EKG; Complete Time: 20:08 [facility] 06/18 06:03 Order name: Troponin I EDMS 06/18 06:10 Order name: CBC with Automated Diff EDMS 06/18 08:00 Order name: Glucose, Ancillary Testing EDMS 06/18 11:39 Order name: NM EDMS 06/18 11:56 Order name: US EDMS 06/18 12:10 Order name: Glucose, Ancillary Testing EDMS 06/17 20:08 Order name: Cardiac monitoring; Complete Time: 20:15 [facility] 06/17 20:08 Order name: EKG - Nurse/Tech; Complete Time: 20:15 [facility] 06/17 20:08 Order name: IV Saline Lock; Complete Time: 20:15 [facility] 06/17 20:08 Order name: Labs collected and sent; Complete Time: 20:15 [facility] 06/17 20:08 Order name: O2 Per Protocol; Complete Time: 20:16 [facility] 06/17 20:08 Order name: O2 Sat Monitoring; Complete Time: 20:16 [facility] 06/17 20:08 Order name: Urine Dipstick-Ancillary (obtain specimen); Complete Time: 22:46 [facility] Administered Medications: 20:30 Drug: NS 0.9% 1000 ml Route: IV; Rate: 125 ml/hr; Site: right antecubital; aa1 21:14 Follow up: IV Status: Infusion continued upon admission aa1 20:30 Drug: Lopressor 5 mg Route: IVP; Site: right antecubital; aa1 21:30 Follow up: Response: No adverse reaction; No change in condition aa1 20:32 Drug: Zofran 4 mg Route: IVP; Site: right antecubital; aa1 21:32 Follow up: Response: No adverse reaction; Nausea is decreased aa1 20:34 Drug: Pepcid 20 mg Route: IVP; Site: right antecubital; aa1 21:34 Follow up: Response: No adverse reaction; No change in condition aa1 20:35 Drug: morphine 2 mg Route: IVP; Site: right antecubital; aa1 21:35 Follow up: Response: No adverse reaction; Pain is decreased aa1 22:27 Drug: morphine 2 mg Route: IVP; Site: right antecubital; aa1 06/18 00:06 Follow up: Response: No adverse reaction; Pain is decreased; RASS: Alert and Calm (0) 06/17 22:27 Drug: Zofran 4 mg Route: IVP; Site: right antecubital; aa1 06/18 00:05 Follow up: Response: No adverse reaction 10:30 Drug: GI Cocktail without - (Maalox Suspension 30 ml, Lidocaine Liquid 2 % 15 hb ml) Route: PO; 10:30 Drug: Bentyl 10 mg Route: PO; hb Disposition: 06/17/19 20:35 Hospitalization ordered by Prince Sena for Inpatient Admission. Preliminary diagnosis are Other chest pain, Type 2 diabetes mellitus, Essential (primary) hypertension. - Bed requested for Telemetry/MedSurg (Inpatient). - Status is Inpatient Admission. eb - Condition is Fair. - Problem is new. - Symptoms have improved. UTI on Admission? No Signatures: Dispatcher [employer] EDWY Candace Jensen RN RN aa1 José Parker MD MD cha Garcia, Cindy, RN RN Sabrina Sanchez RN RN Paul Negron RN RN jd3 Botello, Elizabeth Jagruti Ro Corrections: (The following items were deleted from the chart) 06/17 20:27 20:18 LIPASE+C.LAB.BRZ ordered. EDWY EDMS 22:05 20:35 Hospitalization Ordered by Prince Sena for Inpatient Admission. Preliminary cg diagnosis is Other chest pain; Type 2 diabetes mellitus; Essential (primary) hypertension. Bed requested for Telemetry/MedSurg (observation). Status is Inpatient Admission. Condition is Fair. Problem is new. Symptoms have improved. UTI on Admission? No. parrish 06/18 12:56 06/17 22:05 06/17/2019 20:35 Hospitalization Ordered by [facility] Sena for Inpatient eb Admission. Preliminary diagnosis is Other chest pain; Type 2 diabetes mellitus; Essential (primary) hypertension. Bed requested for [facility] ER HOLD. Status is Inpatient Admission. Condition is Fair. Problem is new. Symptoms have improved. UTI on Admission? No. cg 06/18 13:38 12:56 06/17/2019 20:35 Hospitalization Ordered by [facility] Sena for Inpatient eb Admission. Preliminary diagnosis is Other chest pain; Type 2 diabetes mellitus; Essential (primary) hypertension. Bed requested for Telemetry/MedSurg (Inpatient). Status is Inpatient Admission. Condition is Fair. Problem is new. Symptoms have improved. UTI on Admission? No. eb
--- NOTE | 2019-06-17 20:41 | RAD REPORT ---
EXAM DESCRIPTION: RAD - Chest Single View - 06/17/2019 8:35 pm CLINICAL HISTORY: CHEST PAIN Chest pain. COMPARISON: Chest Single View dated 03/22/2019 FINDINGS: Portable technique limits examination quality. The lungs are grossly clear. The heart is normal in size. No displaced fractures. IMPRESSION: No acute intrathoracic process suspected.
[2019-06-17 20:51] LABS: ALT/SGPT 34 U/L (12-78); AST/SGOT 13 U/L (15-37); Albumin 3.3 g/dL (3.4-5.0); Alkaline Phosphatase 82 U/L (45-117); BUN Blood Urea Nitrogen 10 mg/dL (7-18); Bicarbonate 27 mmol/L (21-32); Bilirubin Direct 0.1 mg/dL (0-0.2); Bilirubin Total 0.6 mg/dL (0.2-1.0); Glucose Level 265 mg/dL (74-106); Lipase 164 U/L (73-393); Magnesium 2.2 mg/dL (1.8-2.4); NT PRO-BNP 21 pg/mL (<125); Potassium 4.1 mmol/L (3.5-5.1); Protein, Total 6.9 g/dL (6.4-8.2); Sodium Level 138 mmol/L (136-145); Troponin (Emerg Dept Use Only) < 0.02 ng/mL (0.0-0.045)
--- NOTE | 2019-06-17 21:53 | P.HP ---
Certification for Inpatient Patient admitted to: Observation With expected LOS: <2 Midnights Practitioner: I am a practitioner with admitting privileges, knowledge of patient current condition, hospital course, and medical plan of care. Services: Services provided to patient in accordance with Admission requirements found in Title 42 Section 412.3 of the Code of Federal Regulations Patient History Date of Service: 06/17/19 Reason for admission: Chest pain History of Present Illness: 53-year-old obese gentleman with a history of coronary artery disease status post stent, pulmonary embolism on Xarelto, history of hypertension and diabetes mellitus type 2 presented to the emergency department with a complaint of sudden onset left-sided chest pain which occurred this evening. The patient stated the chest pain was associated with numbness in the left arm and shortness of breath. He also reports intermittent nonproductive cough. Patient denies any palpitations. No orthopnea or PND. He follows with a manager program at [facility] and he states his last stress test 1 and 1/2 years ago was normal. His EKG in the ED demonstrated sinus rhythm and nonspecific ST T wave changes, initial troponin is negative, chest x-ray shows no acute disease. Patient is placed under observation for ACS rule out. Allergies No Known Allergies Allergy (Unverified 03/22/19 18:37) Home Medications: Atorvastatin Calcium [Lipitor] 1 tab PO DAILY 03/22/19 Clopidogrel Bisulfate [Plavix*] 1 tab PO DAILY 03/22/19 Isosorbide Mononitrate [Isosorbide Mononitrate ER] 1 tab PO DAILY 03/22/19 Metformin ER [Glucophage ER*] 1 tab PO BID 03/22/19 Rivaroxaban [Xarelto*] 20 mg PO DAILY 03/22/19 - Past Medical/Surgical History Diabetic: Yes -: Diabetes mellitus type 2, non insulin dependent -: CAD with prior stent -: Hyperlipidemia -: GERD with hiatal hernia -: Hx multiple pulmonary emboli, chronic anti coag. -: HTN -: Cardiac Stent 2015 -: angioplasty Psychosocial/ Personal History: Patient is . He currently works as a pipe line employee. Patient travels. - Family History Father -: Heart disease, Hypertension Mother -: Heart disease - Social History Alcohol use: Yes CD- Drugs: No Caffeine use: Yes Review of Systems Other: General: No fever, no malaise, no unintentional weight loss. Eyes: No eye discharge, Respiratory: No cough, no shortness of breath. CVS: No palpitation, no lightheadedness. GI: No abdominal pain, no nausea no vomit, no constipation, no diarrhea. Genitourinary: No dysuria, no urinary frequency, no incontinence, no hematuria. Musculoskeletal: No joint pains, or joint swelling, no gait instability. Neurology: No headache, no asymmetric weakness, no problem with swallowing. Except as documented, all other systems reviewed and negative. Physical Examination - Physical Exam General: Alert, In no apparent distress, Oriented x3 HEENT: Normocephalic, PERRLA, Mucous membr. moist/pink, Sclerae nonicteric Neck: Supple, JVD not distended Respiratory: Clear to auscultation bilaterally, Normal air movement Cardiovascular: No edema, Regular rate/rhythm, Normal S1 S2 Capillary refill: <2 Seconds Gastrointestinal: Normal bowel sounds, Soft and benign, Non-distended, No tenderness Musculoskeletal: No swelling, No erythema Integumentary: No rashes, No erythema Neurological: Normal speech, Normal strength at 5/5 x4 extr - Studies Laboratory Data (last 24 hrs) 06/17/19 20:18: PT 13.0 H, INR 1.11 06/17/19 20:18: WBC 8.6, Hgb 15.0, Hct 44.5, Plt Count 241 06/17/19 20:18: Sodium 138, Potassium 4.1, BUN 10, Creatinine 1.15, Glucose 265 H, Magnesium 2.2, Total Bilirubin 0.6, AST 13 L, ALT 34, Alkaline Phosphatase 82 , Lipase 164 06/17/19 20:17: Lipase Cancelled Assessment and Plan - Problems (Diagnosis) (1) Chest pain Current Visit: Yes Status: Acute (2) Coronary artery disease Current Visit: Yes Status: Chronic (3) Stented coronary artery Current Visit: Yes Status: Chronic (4) DM type 2 (diabetes mellitus, type 2) Current Visit: Yes Status: Chronic (5) History of pulmonary embolus (PE) Current Visit: Yes Status: Chronic - Plan Place under observation in telemetry. Continue to trend troponin Nuclear stress test if troponin trend negative. Continue aspirin, Plavix, metoprolol and lipitor Continue Xarelto. Of note his most recent CTA thorax in March 2018 was negative for pulmonary embolus. Blood pressure to be managed with his home antihypertensives Cardiology consult. - Advance Directives Does patient have a Living Will: No Does patient have a Durable POA for Healthcare: No
[2019-06-17 22:53] VITALS: BMI 36.6
[2019-06-17] MEDS ORDERED: NITROGLYCERIN 0.4 MG/TAB SL PRN (23:28)
[2019-06-17] MEDS ORDERED: RIVAROXABAN 10 MG TABLET PO SCH (23:28)
[2019-06-17] MEDS ORDERED: ACETAMINOPHEN 500 MG TAB PO PRN (23:28)
[2019-06-18 00:34] LABS: HDL Cholesterol 28 mg/dL (40-60); LDL Cholesterol, Calculated 143 (<130); Troponin I < 0.02 ng/mL (0.0-0.045)
[2019-06-18 00:45] LABS: Urine Blood NEGATIVE (NEG); Urine Glucose 2+ (NEG); Urine Protein NEGATIVE (NEG)
[2019-06-18] MEDS ORDERED: RIVAROXABAN 20 MG TABLET PO ONE (00:56)
[2019-06-18 05:41] LABS: Absolute Lymphocytes (CBC) 2.2 K/uL (0.7-4.9); Basophils % 0.7 % (0-1.3); Hematocrit 45.2 % (39.6-49.0); Lymphocytes % 26.1 % (15.3-44.8); MPV 8.9 fL (7.6-11.3); RBC Red Blood Cell Count 5.49 M/uL (4.33-5.43)
[2019-06-18 05:57] LABS: Potassium 3.9 mmol/L (3.5-5.1)
[2019-06-18] MEDS: INSULIN -REGULAR HUMAN 50 UNIT/0.5 ML ML SQ SCH ×4 (08:00→20:38)
[2019-06-18] MEDS: METOPROLOL TAR 25 MG TAB PO SCH ×2 (08:00→17:46)
[2019-06-18] MEDS ORDERED: REGADENOSON 0.4 MG/5 ML SYR IV ONE (08:09)
[2019-06-18] MEDS ORDERED: ASPIRIN EC 81 MG TAB PO ONE (08:41)
[2019-06-18] MEDS ORDERED: METOPROLOL TAR 25 MG TAB ONE (08:41)
[2019-06-18] MEDS ORDERED: CLOPIDOGREL 75 MG TABLET ONE (08:41)
[2019-06-18] MEDS ORDERED: INSULIN -REGULAR HUMAN 50 UNIT/0.5 ML ML ONE (08:42)
[2019-06-18] MEDS: CLOPIDOGREL 75 MG TABLET PO SCH (09:00)
[2019-06-18] MEDS: ASPIRIN EC 81 MG TAB PO SCH (09:00)
[2019-06-18] MEDS ORDERED: MORPHINE 4 MG/ML SYR ONE (09:29)
[2019-06-18] MEDS: MORPHINE 4 MG/ML SYR IV PRN ×3 (09:30→20:39)
[2019-06-18] MEDS ORDERED: MAGNE/ALUM HYDROXD 30 ML UCUP ONE (10:30)
[2019-06-18] MEDS ORDERED: DICYCLOMINE HCL 10 MG CAP ONE (10:30)
[2019-06-18] MEDS ORDERED: LIDOCAINE VISCOUS 2% SOLN 15 ML UDC ONE (10:31)
--- NOTE | 2019-06-18 11:39 | RAD REPORT ---
EXAM DESCRIPTION: NM - Rest Stress Cardiac Imaging - 06/18/2019 11:24 am CLINICAL HISTORY: Chest pain. COMPARISON: None. TECHNIQUE: The patient was administered approximately 10mCi of Tc 99m Sestamibi prior to resting SPE CT imaging of the heart. The patient was then administered approximately 30 mCi of Tc 99m Sestamibi f ollowing exercise or pharmacologic stress. Multiplanar SPECT images were reviewed. FINDINGS: Small area of mildly diminished radiotracer activity involves the inferior left ventricula r myocardium on stress images. This area demonstrates normal radiotracer uptake on rest images. Otherwise, there is homogeneous radiotracer uptake involving the left ventricular myocardium on rest and stress sequences The left ventricular ejection fraction 52% IMPRESSION: Small, mild reversible perfusion defect involving the inferior left ventricular myocardi um may indicate stress-induced ischemia
--- NOTE | 2019-06-18 11:56 | RAD REPORT ---
EXAM DESCRIPTION: US - Abdomen Exam Complete - 06/18/2019 11:27 am CLINICAL HISTORY: Abdominal pain COMPARISON: none FINDINGS: The liver has an increased echotexture. It is poorly visualized. A gallstone is not seen. The gallbladder wall is not thickened. The biliary tree is normal caliber. The pancreas was not well visualized secondary overlying bowel gas . The right kidney measures 12 centimeters with a normal echotexture. The left kidney measures 11 centimeters with a normal echotexture. The spleen measures 12 centimeters. Portions of the abdominal aorta and inferior vena cava are not well visualized secondary to overlying bowel gas. No gross abnormality noted IMPRESSION: Increased hepatic echotexture consistent with fatty infiltration
--- NOTE | 2019-06-18 12:21 | EKG ---
Test Date: 2019-06-17 Test Time: 19:59:23 Extrusion Press Adjuster: ABRAHAM MEASUREMENT RESULTS: Intervals: Rate: 95 OK: 184 QRSD: 96 QT: 346 QTc: 434 [place]: P: 25 OK: 184 QRS: -29 T: 14 INTERPRETIVE STATEMENTS: Normal sinus rhythm Possible Anterolateral infarct, age undetermined Abnormal ECG Compared to ECG 03/22/2019 14:00:31 Myocardial infarct finding now present Electronically Signed On 06-18-19 12:20:32 SECRET CODE EXPERT by Tommie Laird
[2019-06-18] MEDS ORDERED: ATORVASTATIN 80 MG TAB PO SCH (12:25)
--- NOTE | 2019-06-18 13:46 | TREADPHA ---
DX: CORONARY ARTERY DISEASE Date of Study: 06/18/2019 Ht: 6 0 Wt: 270 lb 0 oz Consulting Physician: MARGARITA MEDICATIONS: TYLENOL, ASPIRIN, PLAVIX, NOVOLIN-R, LOPRESSOR, XARELTO HISTORY: 53 YEAR OLD MALE WITH COMPLAINTS OF CHEST PAIN. HISTORY OF NON INSULIN DEPENDENT DIABETES MELLITUS, CORONARY ARTERY DISEASE, HYPERLIPIDEMIA, GERD, HYPERTENSION, CHEWS TOBACCO AND OCCASIONAL DRINKER. PHYSICIAL EXAMINATION: RESTING B.P.: 147/93 RESTING H.R.: 62 RESTING EKG: NORMAL PROTOCOL: LEXISCAN EXERCISE TIME: 3:30 B.P. AT [facility] STRESS: 143/94 IMPRESSION: LEXISCAN INJECTED, FOLLOWED BY CARDIOLITE PER PROTOCOL. SEE NUCLEAR MEDICINE REPORT. NO SUPRAVENTRICULAR TACHYCARDIA, VENTRICULAR TACHYCARDIA, PREMATURE VENTRICULAR COMPLEXES OR PREMATURE ATRIAL COMPLEXES NOTED. PATIENT REPORTED CHEST TIGHTNESS BEFORE, DURING AND AFTER. NON DIAGNOSTIC EKG WITH LEXISCAN STRESS.
[2019-06-18] MEDS ORDERED: RIVAROXABAN 20 MG TABLET PO SCH (17:00)
--- NOTE | 2019-06-18 18:46 | CON ---
History Of Present Illness: Mr. Bryant is a 53. He came to the hospital with chest pain. There ar e at least 2 different types of chest pain, sharp sticking chest pain and a constant pressure. He bey s had a constant pressure for several days. The sticking pain comes and goes and he has not had any of that in several hours. Since he has been in the hospital, his cardiac enzymes are normal. His EK G is significant for a possible anterior infarct and a nuclear stress test indicates possible inferio r ischemia. The patient has a history of a stent 4-1/2 years ago. It was not associated with an acu te [place]. Since then, he has had one other heart catheterization that showed everything was normal. He has had a nuclear stress test that showed everything was normal about a year ago. The patient has u nderlying diabetes, hypertension. He uses tobacco. Medications: His outpatient medications have been; atorvastatin, Plavix, isosorbide mononitrate, met formin, and Xarelto. Allergies: HE DOES NOT HAVE ALLERGIES. Physical Examination: General: He is 6 feet tall, 270 pounds. Body mass index 36.6. HEENT: Unremarkable. No carotid bruit. LUNGS: Clear. HEART: Unremarkable. Impression: I think we have a patient, who has CAD with abnormal stress test. He needs a cardiac ca . If he is asymptomatic tomorrow, I will recommend he be discharged and do a heart catheterization as an outpatient. If he is still having chest pain, we will do the heart cath Friday morning and margaux yeboah keep him in the hospital. Thank you very much for your kind referral of Mr. Bryant. I will follow him with you. MARILYN/RYLEE Voice ID: [id number] Report ID: [id number]
[2019-06-18] MEDS ORDERED: ONDANSETRON 4 MG/2 ML VIAL IV PRN (20:33)
[2019-06-18] MEDS: ATORVASTATIN 80 MG TAB PO SCH (20:39)
--- NOTE | 2019-06-18 21:00 | PN ---
Date of Progress Note: 06/18/2019 Subjective: Patient seen and examined. Chart reviewed and case discussed with RN and Dr. Laird. Patient still having some chest discomfort. Also, reports some right upper quadrant abdominal pain. No nausea or vomiting. Medications: List reviewed. Physical Examination: Vital Signs: Temperature 98.3, heart rate 66, blood pressure 146/69, respirations 15, O2 of 96% on room air. General: Awake, alert, oriented x3. Obese male, slightly ill-appearing. CV: S1, S2. Regular rate and rhythm. Peripheral pulses present. Respiratory: Moving air well bilaterally. No wheezing or stridor. No use of accessory muscles. Gastrointestinal: Abdomen is soft. Tenderness to palpation in the right upper quadrant. No rebound or guarding. Positive bowel sounds. Extremities: No clubbing, cyanosis, or edema. Neurologic: Cranial nerves 2 through 12 intact grossly. No focal neurological deficits. Skin: No rashes. Normal skin turgor. Laboratory Data: Sodium 137, potassium 3.9, chloride 104, CO2 of 29, BUN 11, creatinine 1.0, glucose 163, calcium 9. Troponin less than 0.02 x3. Triglycerides 144, cholesterol 200, LDL 143, HDL 28. WBC is 8.5, hemoglobin and hematocrit 15.6/45.2, platelets 257, neutrophils 64.4. UA is negative. Cardiac stress test shows small mild reversible perfusion defect involving the inferior left ventricular myocardium may indicate stress-induced ischemia. Pharmacological stress test shows no supraventricular tachycardia, ventricular tachycardia, premature ventricular complexes or premature atrial complexes noted. Patient reported chest tightness before during and after nondiagnostic EKG with Lexiscan stress. Abdominal ultrasound increased hepatic echotexture consistent with fatty infiltration. Gallstones not seen. Gallbladder wall not thickened. Biliary tree is normal caliber. Assessment And Plan: A 53-year-old male with: 1. Acute coronary syndrome. Cardiac enzymes were negative; however, cardiac stress test is positive. Patient has history of coronary artery disease with the stent. Patient will need repeat catheterization. Dr. Laird is on board. We will continue with anticoagulation and chest pain guidelines. 2. Coronary artery disease with [place] artery and [place] heart, status post stent with angina. Continue aspirin and Plavix. 3. Diabetes mellitus type 2, fav-[id number]-[id number] with hyperglycemia. We will continue sliding scale insulin. Monitor blood glucose levels. 4. History of pulmonary embolism, on Xarelto. 5. Mixed hyperlipidemia. Continue high-dose statin. 6. Gastroesophageal reflux disease with hiatal hernia. We will give trial of PPI. 7. Essential hypertension, stable. We will continue home medications. 8. Deep venous thrombosis prophylaxis addressed. It should be noted the patient's CT angio in March 2018 was negative for pulmonary embolism. Plan cardiac catheterization. Patient not safe for discharge. Has intermittent chest pain, has hx of CAD w stent - risk of morbidity and mortality if coronary anatomy not explored. /RYLEE Voice ID: [id number] Report ID: [id number]
[2019-06-19] MEDS: METOPROLOL TAR 25 MG TAB PO SCH ×2 (05:45→17:16)
[2019-06-19] MEDS: INSULIN -REGULAR HUMAN 50 UNIT/0.5 ML ML SQ SCH ×4 (09:02→20:52)
[2019-06-19] MEDS: ASPIRIN EC 81 MG TAB PO SCH (09:03)
[2019-06-19] MEDS: CLOPIDOGREL 75 MG TABLET PO SCH (09:03)
[2019-06-19] MEDS: ISOSORBIDE MONO SR 60 MG TAB PO SCH (09:03)
--- NOTE | 2019-06-19 13:29 | PN ---
Date of Progress Note: 06/19/2019 Subjective: Patient seen and examined. Chart reviewed and case discussed with RN. Patient still bey ving some twinges of pain, but significantly better. No shortness of breath. Medications: List reviewed. Physical Examination: Vital Signs: Temperature 97.9, heart rate 55, blood pressure 126/82, respirations 20, O2 95% on room air. General: Awake, alert, oriented x3, not in any acute distress, obese male, ill-appearing. CV: S1, S2. Regular rate and rhythm. Peripheral pulses present. Respiratory: Moving air well bilaterally. No wheezing or stridor. No use of accessory muscles. Gastrointestinal: Abdomen is soft, nontender, nondistended. Positive bowel sounds. Extremities: No clubbing, cyanosis, or edema. Neurologic: Nonfocal. Laboratory Data: Glucose level is 169. Assessment And Plan: A 54-year-old male with. 1.Acute coronary syndrome. Positive cardiac stress test. Cardiology recommends cardiac catheteriza tion. Patient has history of heart disease with a stent. Continues to have some chest pain intermit tently. We will stop Xarelto and switch to therapeutic Lovenox. Continue with chest pain guidelines . 2.Coronary artery disease, [place] artery, [place] heart, status post stent with angina. Continue Clair vix. 3.Diabetes mellitus type 2, naq-jcuipwg-shjrfxacz with hyperglycemia. We will continue sliding scal e insulin. Monitor blood glucose levels. 4.History of pulmonary embolism, on Xarelto. We will switch to Lovenox in an anticipation of the he art catheterization. 5.Mixed hyperlipidemia. Continue statin. 6.Gastroesophageal reflux disease with hiatal hernia. PPI. 7.Essential hypertension, stable. 8.Deep venous thrombosis prophylaxis. Patient is on Lovenox. Plan: Cardiac catheterization. The patient is not stable for discharge due to acute coronary syndro me, needs to have coronary anatomy re-evaluated and possible intervention such as angioplasty or sten t, has risk for high mortality if discharge home, continues to have intermittent pain. SA/MODL Voice ID: [id number] Report ID: [id number]
--- NOTE | 2019-06-19 14:44 | PN ---
Mr. Bryant still has a vague chest pain. All of his enzymes are normal. Lab tests looked normal an d his nuclear stress test indicates possible ischemia, inferior LV myocardium. Because of continued chest pain, we will keep him in the hospital and do his heart catheterization next opening, which rajwinder l be June 21. MARILYN/RYLEE Voice ID: [id number] Report ID: [id number]
[2019-06-19] MEDS: MORPHINE 4 MG/ML SYR IV PRN ×2 (17:27→22:51)
[2019-06-19] MEDS: ATORVASTATIN 80 MG TAB PO SCH (20:51)
[2019-06-19] MEDS: Enoxaparin 120 MG/0.8 ML SYR SQ SCH (20:52)
[2019-06-20] MEDS: METOPROLOL TAR 25 MG TAB PO SCH ×2 (05:52→17:35)
[2019-06-20 06:14] LABS: Absolute Lymphocytes (CBC) 2.3 K/uL (0.7-4.9); Basophils % 0.6 % (0-1.3); Hematocrit 44.1 % (39.6-49.0); MPV 9.4 fL (7.6-11.3); RBC Red Blood Cell Count 5.36 M/uL (4.33-5.43)
[2019-06-20 06:21] LABS: Potassium 4.1 mmol/L (3.5-5.1)
[2019-06-20] MEDS: Enoxaparin 120 MG/0.8 ML SYR SQ SCH ×2 (09:00→09:49)
[2019-06-20] MEDS ORDERED: POLYETHYL GLY 3350 17 GM/DOSE PO PRN (09:04)
[2019-06-20] MEDS ORDERED: DOCUSATE NA 100 MG CAP PO PRN (09:04)
[2019-06-20] MEDS: CLOPIDOGREL 75 MG TABLET PO SCH (09:43)
[2019-06-20] MEDS: INSULIN -REGULAR HUMAN 50 UNIT/0.5 ML ML SQ SCH ×4 (09:44→21:56)
[2019-06-20] MEDS: ISOSORBIDE MONO SR 60 MG TAB PO SCH (09:44)
--- NOTE | 2019-06-20 14:46 | PN ---
Mr. Bryant continues to have atypical chest pain without EKG changes or enzyme changes. He has a hi story of an intracoronary stent. A stress test that indicates inferior ischemia, so tomorrow he is s cheduled for a cardiac cath. The patient seems to understand the procedure, its potential benefits, indications, risks, and agrees to proceed. We plan to use the radial approach. Right radial will be our first access attempt. We will be ready to put a stent in. The patient understands the procedur e, its potential benefits, indications, risks, and agrees to proceed. MARILYN/RYLEE Voice ID: [id number] Report ID: [id number]
--- NOTE | 2019-06-20 15:59 | PN ---
Date of Progress Note: 06/20/2019 Subjective: The patient is seen and examined. Chart reviewed and case discussed with RN. Patient i s doing better. Did not have any chest pain last night. Medications: List reviewed. Physical Examination: Vital Signs: Temperature 97.3, heart rate 66, blood pressure 122/79, respirations 20. O2 of 94% on room air. General: Awake, alert, oriented x3. Some mild distress. Obese male, somewhat ill-appearing. CVS: S1, S2. Regular rate and rhythm. Peripheral pulses present. Respiratory: Moving air well bilaterally. No wheezing or stridor. Gastrointestinal: Abdomen is soft, nontender, nondistended. Positive bowel sounds. Extremities: No clubbing, cyanosis, or edema. Neurologic: Nonfocal. Laboratory Data: Sodium 140, potassium 4.1, chloride 106, CO2 of 29, BUN 13, creatinine 1.02, glucos e 156, calcium 8.7. WBC of 8.5, H and H of 15.1 and 44.1, platelets 238, neutrophils 64%. Assessment: A 54-year-old male with: 1.Acute coronary syndrome. Positive cardiac stress test. Plan is for cardiac catheterization. Kasey see has significant history including diabetes; previous heart disease, on stent; hyperlipidemia; an d hypertension. Patient currently on therapeutic Lovenox. Xarelto has been stopped. Continue with chest pain guidelines. Pain is better today. 2.Coronary artery disease, [place] artery, [place] heart, status post stent with angina. Continue Clair vix. 3.Diabetes mellitus type 2 iyq-zjfapvv-gzlkfgdgy with hyperglycemia, will adjust sliding scale insul in. Blood glucose levels have been around the 200s. 4.History of pulmonary embolism, on Xarelto. Currently, on Lovenox. Xarelto has been held due to h eart catheterization. 5.Mixed hyperlipidemia. We will continue statin. 6.Gastroesophageal reflux disease without esophagitis. Patient does have hiatal hernia. Continue P PI. 7.Essential hypertension, stable. 8.Deep venous thrombosis prophylaxis, on Lovenox. Plan: Due to high risk factors, continued pain and acute coronary syndrome, and positive stress test , patient will be going for heart catheterization. SA/MODL Voice ID: [id number] Report ID: [id number]
[2019-06-20] MEDS: MORPHINE 4 MG/ML SYR IV PRN ×2 (16:23→21:56)
[2019-06-20] MEDS: ATORVASTATIN 80 MG TAB PO SCH (21:55)
[2019-06-21] MEDS: METOPROLOL TAR 25 MG TAB PO SCH (05:30)
[2019-06-21 05:47] LABS: Potassium 3.9 mmol/L (3.5-5.1)
[2019-06-21] MEDS ORDERED: LIDOCAINE 1% MPF 30 ML VIAL ONE (07:16)
[2019-06-21] MEDS ORDERED: HEPA 1000U/500MLS 2,000 UNIT/1,000 ML BAG IV ONE (07:16)
[2019-06-21] MEDS ORDERED: FENTANYL CITR 100 MCG/2 ML ONE (07:18)
[2019-06-21] MEDS ORDERED: HEPARIN 5000 UNIT/ML 1 ML VIAL ONE (07:18)
[2019-06-21] MEDS ORDERED: MIDAZOLAM HCL 2 MG/2 ML INJ ONE ×2 (07:18→08:15)
[2019-06-21] MEDS ORDERED: NITROGLYCERIN/D5W 25 MG/250 ML BTL IV ONE (07:19)
[2019-06-21] MEDS ORDERED: NICARDIPINE HCL 25 MG/10 ML IV ONE (07:19)
[2019-06-21] MEDS ORDERED: NA CHLORIDE 0.9% 0 ML IV ONE (07:19)
[2019-06-21] MEDS ORDERED: NITROGLYCERIN 100 MCG/ML SYR (for cath lab use only) IV ONE (07:19)
[2019-06-21] MEDS ORDERED: ATROPINE SULF 1 MG/10 ML SYR IV ONE (07:19)
[2019-06-21] MEDS: INSULIN -REGULAR HUMAN 50 UNIT/0.5 ML ML SQ SCH ×2 (07:30→11:47)
[2019-06-21] MEDS ORDERED: NA CHLORIDE 0.9% 500 ML ONE (08:00)
[2019-06-21] MEDS: ISOSORBIDE MONO SR 60 MG TAB PO SCH (09:00)
[2019-06-21] MEDS: CLOPIDOGREL 75 MG TABLET PO SCH (09:00)
[2019-06-21] MEDS ORDERED: MORPHINE 2 MG/ML SYR IV PRN (09:13)
--- NOTE | 2019-06-21 09:13 | OP ---
Surgeon: Tommie Laird MD Procedures: Left heart catheterization, coronary left ventricular angiography. Findings: Moderate diffuse CAD. No focal stenosis, more than 50%. Patent LAD stent. Procedure In Detail: The patient was brought to the cardiac lab[facility] in a fasting state, sedated wit h Versed and fentanyl. 1% lidocaine, 3 cc was used to anesthetize the skin around the right radial a rtery. The artery was entered using a 21-gauge needle, cannulated with a 0.021-inch diameter guidewi re. A 5/6-[place] Terumo radial sheath was placed. Wire and introducer were removed and the sheath w as flushed with saline and then a radial cocktail. The radial cocktail consisted of nicardipine, hep nara and nitroglycerin. We guided the TIG catheter into the ascending aorta using fluoroscopy and a short radius J-tip Terumo Glidewire. We were able to angiogram right and left coronaries and left ve ntricle using the same TIG catheter. At the end of the procedure when the decision was made not to d o an intervention, the catheter was removed over a wire. . The sheath was removed and the arteriotomy closed with a large TR band. Complications: None. Estimated Blood Loss: 5 cc. Scraper Loader Operator: Rachele Turner. MARILYN/RYLEE Voice ID: [id number] Report ID: [id number]
[2019-06-21 10:15] VITALS: O2SAT 95
[2019-06-21 12:57] VITALS: BP 124/81; TEMP 96.9
--- NOTE | 2019-06-22 01:14 | DS ---
Date of Discharge: 06/21/2019 Consultants: Dr. Laird with Cardiology. Procedures: Cardiac stress test 06/18/2019, shows stress-induced ischemia. Procedures: On 06/21/2019, cardiac catheterization; findings, moderate diffuse coronary artery disea se, no focal stenosis more than 50%, patent LAD stent. No new stents were placed. Admitting Diagnoses: 1.Unstable angina. 2.Coronary artery disease, [place] artery and [place] heart status post stent with angina. 3.Diabetes mellitus type 2, mei-serrdal-twxoeslse with hyperglycemia. 4.History of pulmonary embolism on anticoagulation. 5.Obesity. Discharge Diagnoses: 1.Acute coronary syndrome, status post heart catheterization. 2.Coronary artery disease, [place] artery, [place] heart, status post stent with angina. 3.Diabetes mellitus type 2, dul-zubjtrl-wewnyinlq with hyperglycemia. 4.History of pulmonary embolism, on Xarelto. 5.Mixed hyperlipidemia, on statin. 6.Obesity, BMI 36. 7.Gastroesophageal reflux disease without esophagitis. 8.Essential hypertension, stable. Hospital Course: Patient is a 54-year-old male with past medical history of hypertension, diabetes, history of PE, obesity, comes in with chest pain. Patient has a previous stent. He was admitted to the hospital for further evaluation. His cardiac enzymes were negative. However, patient did have a bnormal stress test. Cardiology was consulted and a heart catheterization was performed. As mention ed above, no new stents were placed. Medical management was recommended for the patient. Overall, p pb did well, his pain resolved, his lipid panel showed elevated LDL and low HDL. He was counsele d regarding his diet and exercise regimen. His abdominal ultrasound, which was done due to some righ t upper quadrant abdominal pain did show fatty liver disease. He was counseled extensively on fatty liver disease. He understands that this is a major cause of liver transplant in the [place] as fatty liver disease can lead to liver failure in 10-20 years. He is encouraged to follow up with a GI doctor, have repeat imaging done of his liver every 6-9 months and to adjust his diet and exercise regimen. There was no gallstones seen and there was no gallbladder thickening on the ultrasound. O verall, patient did well. His Xarelto was held due to procedure. He was bridged with Lovenox, Xarel to will be resumed. Patient was then cleared for discharge and was sent home in a stable condition. Activity, as tolerated. Medications: As per medication reconciliation list. Followup: Follow up with PCP in 2-3 days. Follow up with director security management, Dr. Laird, in 2 weeks. Ret urn to ER for worsening condition. Physical Examination: General: Awake, alert, and oriented x3. Obese male. CV: S1, S2. Respiratory: Moving air well bilaterally. Abdomen: Abdomen is soft, nontender, nondistended. Positive bowel sounds. Extremities: No clubbing, cyanosis, or edema. Neurologic: Nonfocal. Patient understands that he needs to hold his metformin for 48 hours post cardiac catheterization. SA/MODL Voice ID: [id number] Report ID: [id number]
[2019-06-22] MEDS ORDERED: PANTOPRAZOLE 40MG TABLET PO SCH (06:30)
== END 2019-06-21 14:10 | disposition home or self-care (01) | DRG 287 ==
LOC: ER 19:46 → ERHOLD 21:56 → INTOOBSV 21:56 → OBSVTOIN 21:56 → 2ND 06-18 13:16 → OBSVTOIN 06-18 15:08
PROVIDERS: ADMIT Internal Medicine; ATTEND Internal Medicine
PROC: 4A023N7 Measurement of Cardiac Sampling and Pressure, Left Heart, Percutaneous Approach (ICD-10-PCS; principal; 2019-06-21)
PROC: B205YZZ Plain Radiography of Left Heart using Other Contrast (ICD-10-PCS; 2019-06-21)
DX: I24.9 Acute ischemic heart disease, unspecified (principal); K21.9 Gastro-esophageal reflux disease without esophagitis; E78.5 Hyperlipidemia, unspecified; E11.65 Type 2 diabetes mellitus with hyperglycemia; I25.10 Atherosclerotic heart disease of native coronary artery without angina pectoris; I10 Essential (primary) hypertension; E78.2 Mixed hyperlipidemia; E66.9 Obesity, unspecified; Z68.36 Body mass index [BMI] 36.0-36.9, adult; Z79.01 Long term (current) use of anticoagulants; Z95.5 Presence of coronary angioplasty implant and graft; Z86.711 Personal history of pulmonary embolism
CPT/HCPCS: 36415; 71045; 76700; 78452; 80048; 80061; 80076; 81003; 82947; 83690; 83735; 83880; 84484; 85025; 85610; 93005; 93017; 93458; 94760; 96361; 96374; 96375; 99285; A9500; C1893; G0378; J0583; J1644; J1650; J2250; J2270; J2405; J2785; J3010; J7030; J7040